=== PATIENT | male | born 2000 | race Caucasian/White ===

== ENCOUNTER 2024-04-04 22:16 | Emergency (ER) | payer OTHER, SELFPAY ==
[2024-04-04 22:32] VITALS: BP 126/68; PULSE 59; RESP 16; TEMP 36.5; O2SAT 98; BMI 18.3
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
== END 2024-04-04 23:44 | disposition home or self-care (01) ==
PROVIDERS: Emergency Provider Family Medicine
DX: T23.262A Burn of second degree of back of left hand, initial encounter (principal); T31.0 Burns involving less than 10% of body surface; X19.XXXA Contact with other heat and hot substances, initial encounter
CPT/HCPCS: 16020; 99283

== ENCOUNTER 2024-08-18 19:11 | Emergency (ER) | payer OTHER, SELFPAY ==
[2024-08-18 19:22] VITALS: BP 149/77; PULSE 63; RESP 16; TEMP 37.1; O2SAT 97; BMI 18.3
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
== END 2024-08-18 20:46 | disposition home or self-care (01) ==
LOC: ED 20:31
PROVIDERS: Emergency Provider Family Medicine
DX: S01.311A Laceration without foreign body of right ear, initial encounter (principal); W01.198A Fall on same level from slipping, tripping and stumbling with subsequent striking against other object, initial encounter
CPT/HCPCS: 12011; 99283; 99284